=== PATIENT | male | born 1945 | race African-American/Black ===

== ENCOUNTER 2020-06-07 12:20 | Observation (INO) | payer MEDICARE ==
[2020-06-03 09:57] LABS: BASOPHILS # (AUTO) 0.1 (0.0-0.1); EOSINOPHILS # (AUTO) 0.2 (0.0-0.4); EOSINOPHILS % 2.9 % (0.0-6.0); HEMATOCRIT 41.5 % (38.2-49.6); HEMOGLOBIN 13.2 g/dL (14.0-18.0); LYMPHOCYTES % 32.8 % (18.0-39.1); MEAN CORPUSCULAR HEMOGLOBIN 29.7 pg (28-32); MEAN CORPUSCULAR HGB CONC 31.8 g/dL (31-35); MEAN CORPUSCULAR VOLUME 93.3 fL (81-99); MONOCYTES # (AUTO) 0.7 (0.2-0.8); MONOCYTES % 10.5 % (4.4-11.3); NEUTROPHILS # (AUTO) 3.2 (2.1-6.9); NEUTROPHILS % 52.5 % (38.7-80.0); PLATELET COUNT 220 x10e3/uL (140-360); RED BLOOD COUNT 4.45 x10e6/uL (4.3-5.7); RED CELL DISTRIBUTION WIDTH 13.4 % (11.7-14.4)
[2020-06-03 10:30] LABS: ALANINE AMINOTRANSFERASE 13 IU/L (0-55); ALBUMIN 3.6 g/dL (3.5-5.0); ALBUMIN/GLOBULIN RATIO 0.7 (0.8-2.0); ALKALINE PHOSPHATASE 105 IU/L (40-150); ANION GAP 14.3 mmol/L (8-16); BLOOD UREA NITROGEN 26 mg/dL (7-26); BUN/CREATININE RATIO 19 (6-25); CARBON DIOXIDE 25 mmol/L (22-29); CHLORIDE 101 mmol/L (98-107); CREATININE, SERUM 1.35 mg/dL (0.72-1.25); EST GLOMERULAR FILTRATION RATE > 60 ML/MIN (60-); GLUCOSE 265 mg/dL (74-118); POTASSIUM 4.3 mmol/L (3.5-5.1); SODIUM 136 mmol/L (136-145)
[~2020-06-07] VITALS: Ht 188 cm; Wt 72.6 kg
[2020-06-07] VITALS (23 sets, daily range): BP systolic 130–159; BP diastolic 69–95
[~2020-06-07 12:20] MED LIST: AMLODIPINE BESYL5 MG PO; ASPIRIN EC81 MG PO; CINNAMON500 MG PO; CLOPIDOGREL75 MG PO; FLOMAX0.4 MG PO; MULTIVITAMINS1 EAC6 PO; PRAVACHOL40 MG PO
[2020-06-07] MEDS ORDERED: DIPHENHYDRAMINE HCL 25 MG CAP ONE (12:44)
[2020-06-07] MEDS ORDERED: ALPRAZOLAM 0.5 MG TAB ONE (12:44)
[2020-06-07] MEDS ORDERED: LIDOCAINE HCL 2% LOCAL 20 ML VIAL ONE (12:59)
[2020-06-07] MEDS ORDERED: MIDAZOLAM HCL 2 MG/2 ML VIAL ONE (12:59)
[2020-06-07] MEDS ORDERED: FENTANYL CITRATE/PF 100MCG/2 ML INJ ONE (12:59)
[2020-06-07] MEDS ORDERED: HEPARIN SOD/SOD CHLORIDE 2,000 ML ONE (13:00)
[2020-06-07] MEDS ORDERED: SODIUM CHLORIDE 0.9% 1000ML 1,000 ML ONE (13:00)
[2020-06-07] MEDS ORDERED: IOPAMIDOL 300MG/ML 100 ML INFUS..BTL IV ONE (13:00)
[2020-06-07] MEDS ORDERED: PRASUGREL 10 MG TAB ONE (14:38)
[2020-06-07] MEDS ORDERED: ASPIRIN 325 MG TAB ONE (14:38)
[2020-06-07] MEDS ORDERED: LABETALOL HCL 20 MG/4 ML SYRINGE IV PRN (20:00)
[2020-06-07] MEDS ORDERED: MORPHINE SULFATE INJ 4 MG/ML INJ 1ML IV PRN (20:30)
[2020-06-07] MEDS ORDERED: TAMSULOSIN HCL 0.4 MG CAP PO SCH (21:00)
[2020-06-07] MEDS ORDERED: NON-FORMULARY MEDICATION (Cinnamon Bark (Cinnamon) 1,000 MG) PO SCH (21:00)
[2020-06-07] MEDS ORDERED: MULTIVITAMINS/MINERALS TAB PO SCH (21:00)
[2020-06-07] MEDS ORDERED: PRAVASTATIN 20 MG TAB PO SCH (21:00)
[2020-06-08] VITALS: BP 147/72
[2020-06-08 04:00] VITALS: BP 124/77
[2020-06-08 05:31] VITALS: BP 147/72
[2020-06-08] MEDS ORDERED: LABETALOL HCL 5 MG/ML 20ML VIAL IV PRN (07:45)
[2020-06-08 08:00] VITALS: BP 123/71
[2020-06-08] MEDS ORDERED: CLOPIDOGREL BISULFATE 75 MG TAB PO SCH (09:00)
[2020-06-08] MEDS ORDERED: AMLODIPINE BESYLATE 5 MG TAB PO SCH (09:00)
[2020-06-08] MEDS ORDERED: ASPIRIN 81 MG ENTERIC COATED PO SCH (09:00)
[2020-06-08 11:57] VITALS: BP 124/76
== END 2020-06-08 12:20 | disposition home or self-care (01) ==
LOC: CATH LAB 12:20 → CATH LAB V 16:42 → MED/SURG 19:42
PROVIDERS: ADMIT Internal Medicine Interventional Cardiology; ATTEND Internal Medicine Interventional Cardiology
DX: I73.9 Peripheral vascular disease, unspecified (principal); Z01.812 Encounter for preprocedural laboratory examination; Z20.828 Contact with and (suspected) exposure to other viral communicable diseases; I10 Essential (primary) hypertension; I25.118 Atherosclerotic heart disease of native coronary artery with other forms of angina pectoris
CPT/HCPCS: 36415; 37221; 75625; 80053; 85025; C1769 ×2; C1887; G0378 ×2; J2001; J2250; J3010; J7030; Q9967; U0002; 36247; 75716; 99152; 99153